=== PATIENT | female | born 1975 | race American Indian/Alaskan Native ===

== ENCOUNTER 2016-10-29 18:19 | Emergency (ER) | payer SELFPAY ==
[2016-10-30 00:39] LABS: Basophils % (Auto) 0.6 % (0.0-1.8); Eosinophils % (Auto) 7.5 % (0.0-4.3); Hematocrit 33.2 % (30.3-42.9); Hemoglobin 10.9 gm/dl (10.1-14.3); Mean Corpuscular HGB Conc 33 % (30-34); Mean Corpuscular Hemoglobin 26 pg (28-32); Mean Corpuscular Volume 78 fl (79-97); Platelet Count 187 K/mm3 (140-440); Red Blood Count 4.24 M/mm3 (3.65-5.03); Red Cell Distribution Width 15.9 % (13.2-15.2); White Blood Count 5.5 K/mm3 (4.5-11.0)
[2016-10-30 01:05] LABS: Alanine Aminotransferase 19 units/L (7-56); Albumin 3.7 g/dL (3.9-5); Albumin/Globulin Ratio 1.2 %; Alkaline Phosphatase 102 units/L (35-129); Bilirubin,Total 0.2 mg/dL (0.1-1.2); Blood Urea Nitrogen 10 mg/dL (7-17); Calcium 9.1 mg/dL (8.4-10.2); Carbon Dioxide 24 mmol/L (22-30); Glucose 102 mg/dL (65-100); Magnesium 1.8 mg/dL (1.7-2.3); Sodium 140 mmol/L (137-145); Total Protein 6.7 g/dL (6.3-8.2)
[2016-10-30 01:06] LABS: Anion Gap 16 mmol/L
[2016-10-30] MEDS ORDERED: NORCO 5/325 PO ONE (05:20)
--- NOTE | 2016-10-30 05:26 | Emergency Department Report ---
HPI - General Chief Complaint: Sore Throat Time Seen by Provider: 10/30/16 00:11 - HPI HPI: The patient is a 41-year-old female who presents for evaluation of neck pain. The patient reports bilateral anterior neck pain surrounding her thyroid gland for the past week. She shares that she recently was diagnosed with hyperthyroidism and began on methimazole. She states that her pain is mild in severity, tightness in quality, exacerbated with swallowing, and associated with increase in thyroid gland size. She has not follow-up endocrinology since her diagnosis. The patient denies fever, dyspnea, neck stiffness, dysphagia, stridor, drooling, difficulty tolerating secretions, dysphonia, hoarseness of voice, abdominal pain. ED Past Medical Hx - Past Medical History Previous Medical History?: Yes Hx Hypertension: Yes Hx Congestive Heart Failure: No Hx Diabetes: No Hx Asthma: No Hx COPD: No Additional medical history: ovarian cyst hyperthyroidism - Surgical History Past Surgical History?: Yes Hx Appendectomy: Yes (2015) Additional Surgical History: tubal ligation, neck disc repair, Removal of right fallopian tube 08-17-16. - Social History Smoking Status: Former Smoker Substance Use Type: Non Opiate Pain, Prescribed - Medications Home Medications: Home Medications Medication Instructions Recorded Confirmed Last Taken Type Metoprolol [Lopressor TAB] 25 mg PO Q8H #90 tablet 09/22/16 Unknown Rx HYDROcodone/APAP 7.5-325 [[place] 1 each PO Q8HR PRN #10 tablet 10/30/16 Unknown Rx 7.5-325 mg TAB] Methimazole [Tapazole] 5 mg PO BID #30 tablet 10/30/16 Unknown Rx ED Review of Systems ROS: Stated complaint: HYPERTHYROIDISM/SWOLEN NECK/JESUSITA/CHEST PAINS Other details as noted in HPI Constitutional: denies: fever ENT: denies: throat or neck pain Respiratory: denies: cough, shortness of breath Cardiovascular: denies: chest pain Endocrine: reports enlarged thyroid gland denies unexplained weight loss or gain Musculoskeletal: denies: leg swelling Skin: denies: rash Neurological: denies: headache Hematological/Lymphatic: denies: easy bleeding or easy bruising Psych: denies sadness or hopelessness Physical Exam - Physical Exam Vital Signs: Vital Signs 10/29/16 10/29/16 18:31 23:49 Temperature 98 F 98.2 F Pulse Rate 97 H 84 Respiratory 18 Rate Blood Pressure 155/97 Blood Pressure 149/96 [Right] O2 Sat by Pulse 98 96 Oximetry Physical Exam: General: well-nourished, well-developed, no acute distress Head: Normocephalic, atraumatic Eyes: normal sclera, no exophthalmos or proptosis ENT: Mucous membranes are pink and moist, mild erythema of the posterior oropharynx present, but no swelling, fluctuance, or bulging to oropharnyx, no tonsillar exudates, and no tonsillar, soft palate, or uvula deviation. Neck: there is no no erythema, warmth, or fluctuance to the external neck, trachea midline, neck supple, No neck stiffness, no cervical adenopathy, bilateral thyroid gland enlargment present Respiratory: Breath sounds equal bilaterally, no wheezing, rales, or rhonchi Cardio: S1 and S2 present, no murmurs, rubs, gallops, capillary refill is brisk Musc: No pitting edema Skin: No rash Psych: Normal affect ED Course Vital Signs 10/29/16 10/29/16 18:31 23:49 Temperature 98 F 98.2 F Pulse Rate 97 H 84 Respiratory 18 Rate Blood Pressure 155/97 Blood Pressure 149/96 [Right] O2 Sat by Pulse 98 96 Oximetry ED Medical Decision Making - Lab Data Result diagrams: 10/30/16 00:21 10/30/16 00:21 - Medical Decision Making The patient was seen and examined by myself. The patient's found on evaluation to have soft tissue pain to the neck surrounding her goiter, and posterior oropharyngeal pain. The thyroid is nontender and there are no signs of acute thyroiditis. The patient given a tab of [place] for her pain. The patient denies fever, headache, neck pain, paresthesias, focal motor weakness, blurry vision, ear pain, tinnitus, chest pain, hemoptysis, dyspnea, abdominal pain, confusion or altered mental status, or recent URI or diarrhea. Critical care attestation.: If time is entered above; I have spent that time in minutes in the direct care of this critically ill patient, excluding procedure time. ED Disposition Clinical Impression: Thyroid goiter, Neck pain, acute Disposition: DISCHARGED TO HOME OR SELFCARE Is pt being admited?: No Does the pt Need Aspirin: No Condition: Stable Instructions: Thyroid Goiter (ED), Pharyngitis (ED) Referrals: CHEMO STAHL MD [Staff Physician] - 3-5 Days PRIMARY CARE, [Primary Care Provider] - 3-5 Days Time of Disposition: 05:23
[2016-10-30 05:32] VITALS: BP 146/90
== END 2016-10-30 05:26 | disposition home or self-care (01) ==
LOC: ED 18:19
DX: E04.9 Nontoxic goiter, unspecified (principal); M54.2 Cervicalgia; I10 Essential (primary) hypertension; E03.9 Hypothyroidism, unspecified; Z87.891 Personal history of nicotine dependence
CPT/HCPCS: 36415; 80053; 81025; 83735; 84439; 84443; 84702; 85025